=== PATIENT | female | born 1995 | race Hispanic/Latino ===

== ENCOUNTER 2016-11-12 00:49 | Inpatient (IN) | payer OTHER ==
[~2016-11-12] VITALS: Ht 160 cm; Wt 69.9 kg
[2016-11-12] MEDS ORDERED: Oxytocin 30 Units/500 mL LR 30 UNITS in IV Premix 1 EACH IV PRN ×2 (07:25→07:30)
[2016-11-12] MEDS ORDERED: Lactated Ringer's 1,000 ML IV SCH (07:25)
[2016-11-12] MEDS ORDERED: Carboprost 250 mCg/mL Inj IM PRN (07:30)
[2016-11-12] MEDS ORDERED: fentaNYL-PF 50 mCg/mL 2 mL Inj IVPUSH PRN (07:30)
[2016-11-12] MEDS ORDERED: Methylergonovine 0.2 mg/mL Inj IM PRN (07:30)
[2016-11-12] MEDS ORDERED: Lactated Ringer's 1,000 ML IV PRN (07:30)
[2016-11-12] MEDS ORDERED: Hemorrhage Kit, Post Partum XX ONE (07:30)
[2016-11-12 08:00] LABS: Mean Corpuscular Hemoglobin 25.8 pg (27.0-35.0); Mean Corpuscular Volume 79.9 fL (81-100)
[2016-11-12] MEDS ORDERED: Lidocaine 1%-Epi 1:100,000 20 mL Inj ONE (14:39)
[2016-11-12] MEDS ORDERED: Lactated Ringer's 1,000 ML IV ONE (21:55)
--- NOTE | 2016-11-12 22:26 | PCM.PNOBIP ---
Subjective Date of Service November 12, 2016 Gastrointestinal: No N/V Activity: Ambulating Independently Group B Strep Results: Negative Labs Laboratory Tests 11/12/16 07:50: White Blood Count 7.5, Red Blood Count 4.18, Hemoglobin 10.8, Hematocrit 33.4, Mean Corpuscular Volume 79.9, Mean Corpuscular Hemoglobin 25.8, Mean Corpuscular Hemoglobin Concent 32.3, Red Cell Distribution Width 14.9, Platelet Count 232 Exam Vital Signs Vital Signs Contraction frequency in minutes: MVUs: Heart Tracings Heart Tones Baseline 130 bpm Heart Rate Variability: Moderate Heart Rate Accelleration: Present Heart Rate Deceleration: Absent Heart Rate Category: I Tocometry/IUPC Contraction frequency in minutes: MVUs: Sterile Vaginal Exam Cervical Dilation: 3 cms Cervical Effacement: 70 % Station: -3 Exam Abdomen: Abdomen non-tender Lungs: Clear to Auscultation General: Alert, Oriented X3 OB Intrapartum Assessment/Plan Assessment 20 Y/O at 41 weeks 0 days IOL for late term Pitocin at 12 miliunits SROM 1700 , confirmed by ROM plus, still palpable membranes, discuss to continue Pitocin vs rupturing the remaining bag and placing internals to facilitate labor, patient declined rupturing membranes at this time and desires to continue with Pitocin. Will continue Pitocin as pt still in latent phase of labor If no cervical change overnight will consider rupturing remaining membranes in the AM, patient agreed to the plan. continue close monitoring for signs of infection and FHT. contractions getting stronger , OK for morphine. Rocky GALAVIZ. Sae Montero MD November 12, 2016 22:26
[2016-11-13] MEDS ORDERED: Lactated Ringer's 500 ML IV ONE (02:25)
[2016-11-13] MEDS ORDERED: Atropine 1 mg/10 mL (Code) Syringe IVPUSH PRN (02:25)
[2016-11-13] MEDS ORDERED: Ondansetron 2 mg/mL 2 mL Inj IVPUSH PRN (02:25)
[2016-11-13] MEDS ORDERED: Phenylephrine/NS-PF 100 mCg/mL 5 mL Syringe IVPUSH PRN (02:25)
[2016-11-13] MEDS ORDERED: Lactated Ringer's 1,000 ML IV SCH ×2 (02:25→13:10)
[2016-11-13] MEDS ORDERED: fentaNYL 2 mCg/mL-Bupiv 0.125% 100 ML EPIDURAL SCH (02:25)
--- NOTE | 2016-11-13 02:29 | PCM.HPANE ---
Patient Data Date of Service: November 13, 2016 Surgeon Admitting Provider:Carine Cunha MD Attending Provider:Carine Cunha MD Primary Care Physician:Ynes Hernandez MD Other Provider:Sp Alex Anesthesia Reason for Visit Induction INDUCTION Ht/WT & BMI Height (Centimeters): 160 Weight (Kilograms): 69.85 Body Mass Index 27.3 Allergies Coded Allergies: No Known Allergies (Unverified Allergy, Unknown, 11/12/16) Past Anesthesia History Anesthesia History: Denies:: Anesthesia Reactions, Malignant Hyperthermia Diabetes History Hx Diabetes?: No MRSA MRSA: No Medications Hypertension Medication: No Home Meds Incl Beta Atif: No History History of ENT Problems?: No HEENT History: Denies:: Abnormal Airway Denture Type: None Teeth Condition: Within Normal Limits Hx of Heart Problems?: No Cardiovascular History: Denies:: Chest Pain Heart Murmur Hx of Respiratory Problem?: No Respiratory History: Denies:: Asthma Hx Neurologic Problems?: No Neurological History: Denies:: Multiple Sclerosis Peripheral Neuropathy Seizures Hx of GI Problems?: No Hx of Problems?: No HX of Peritoneal Dialysis: No Female Hx: Positive for:: Currently Hx Musculoskeletal Problems?: No Musculoskeletal History: Denies:: Back Injury Musculoskeletal Trauma Rheumatoid Arthritis Hx of Psycho/Social Problems?: No Hx Surgeries?: No Smoking Status: Never Smoker Stop/Bang Risk Assessment Category Category 1A: Patient has history of documented sleep apnea, and HAS NOT received any narcotic, sedative or anesthesia administration during this stay. Category 1B: Patient has history of documented sleep apnea, and HAS received any narcotic , sedative or anesthesia administration during this stay Category 2: Patient has SUSPECTED Obstructive Sleep Apnea, and HAS received any narcotic , sedative or anesthesia administration during this stay. Category 3: Patient has SUSPECTED Obstructive Sleep Apnea and HAS NOT received narcotic, sedative or anesthesia administration during this stay. Category 4: Outpatient in Procedural Areas with known sleep apnea or who screen positive for High Risk via the STOP/BANG questionnaire. Exam Exam General Appearance: Alert, Oriented X3, Mild Distress (labor pain with contractions) HEENT/AIRWAY: MP 2 Lungs: Clear to Auscultation, Normal Air Movement Heart: Exam Unremarkable Meds/Labs/Diagnostics Admission Meds Current Medications Lactated Ringer's (Lr) 1,000 ml @ 0 mls/hr Q0M ONCE IV Last administered on 5/ 1/17at 22:41; Start 11/12/16 at 21:55; Stop 11/12/16 at 22:42; Status DC Labs Test 11/12/16 07:50 White Blood Count 7.5th/mm3 (3.8-10.1) Red Blood Count 4.18mil/mm3 (3.90-5.20) Hemoglobin 10.8g/dL (12.0-15.6) Hematocrit 33.4% (35.0-46.0) Mean Corpuscular Volume 79.9fL (81-100) Mean Corpuscular Hemoglobin 25.8pg (27.0-35.0) Mean Corpuscular Hemoglobin Concent 32.3% (32.0-37.0) Red Cell Distribution Width 14.9% (12.3-15.4) Platelet Count 232bil/L (150-400) Plan Impression Patient chart reviewed, patient interviewed and anesthestic plan with risks, benefits, and alternatives discussed, and informed consent obtained. ASA Physical Status: ASA2 Mod Systemic Disease Anesthetic Plan: Epidural (labor) Bene/Risks/Altern/Consents: Yes HP Complete Prior to Induction: Yes Soren Baird MD November 13, 2016 02:29
--- NOTE | 2016-11-13 02:43 | PCM.PNOBIP ---
Subjective Date of Service November 13, 2016 Subjective Second gush of fluid with copious amount of clear fluid at ~2:00 am 11/13/16. Pt requesting epidural. Gastrointestinal: No N/V Activity: Ambulating Independently Group B Strep Results: Negative Labs Laboratory Tests 11/12/16 07:50: White Blood Count 7.5, Red Blood Count 4.18, Hemoglobin 10.8, Hematocrit 33.4, Mean Corpuscular Volume 79.9, Mean Corpuscular Hemoglobin 25.8, Mean Corpuscular Hemoglobin Concent 32.3, Red Cell Distribution Width 14.9, Platelet Count 232 Exam Vital Signs Vital Signs Contraction frequency in minutes: MVUs: Heart Tracings Heart Tones Baseline 125 bpm Heart Rate Variability: Moderate Heart Rate Accelleration: Present Heart Rate Deceleration: Absent Heart Rate Category: I Tocometry/IUPC Contraction frequency in minutes: MVUs: Sterile Vaginal Exam IUPC was placed. Cervical Dilation: 4 cms Cervical Effacement: 90 % Station: -2 Exam Abdomen: Abdomen non-tender General: Alert, Oriented X3 OB Intrapartum Assessment/Plan Assessment 20 at 41w1d IOL on Pitocin SROM at 1700 (11/12/16) , clear fluid. GBS negative cephalic by bedside US. Intrapartum Pain Management: Epidural (requested , OK for epidural. ) Sae Montero MD November 13, 2016 02:43
[2016-11-13] MEDS: EPHEDrine Sulfate 50 mg/mL Inj IVPUSH PRN ×2 (03:18→03:23)
[2016-11-13 07:14] LABS: Mean Corpuscular Hemoglobin 25.4 pg (27.0-35.0); Mean Corpuscular Volume 79.9 fL (81-100)
--- NOTE | 2016-11-13 07:44 | HP ---
[address] [address] HISTORY AND PHYSICAL PATIENT: MIREYA GALLEGOS : 1995 MR#: [id number] ADMIT: 11/12/2016 JOB ID: [id number] CHIEF COMPLAINT: Induction of labor. HISTORY OF PRESENT ILLNESS: This is a 20-year-old, G1, P0 female at 41 weeks gestational age with an EDC of November 05, 2016 who presents for a scheduled induction of labor for post dates. Her was otherwise uncomplicated. laboratory data showed blood type A positive, antibody screen negative, rubella immune, varicella immune, hep B surface antigen negative, RPR nonreactive, HIV negative, and GBS negative. She was checked in clinic last week and noted to be 1-2 cm dilated, 60% effaced, and -3 station. Risks, benefits and alternatives to induction of labor for post dates were discussed, and she was scheduled to come in today. PAST MEDICAL HISTORY: Anxiety. PAST SURGICAL HISTORY: None. OBSTETRICAL HISTORY: She is a G1, P0. HISTORY: As noted above. SOCIAL HISTORY: Patient denies any tobacco, alcohol or drug use. FAMILY HISTORY: Noncontributory. MEDICATIONS: Include vitamins. ALLERGIES: She has no known drug allergies. OBJECTIVE: Blood pressure is 101/67, her heart rate is 64, respiratory rate 20, and her temperature is 36.8. In general, she is awake, alert, oriented. She is in no acute distress, lying comfortable in the exam room. Her abdomen is soft, nontender, nondistended. Her estimated weight is approximately 7 pounds. heart tones show 130s baseline, moderate variability, with accelerations present. Tocometry at the time of admission shows rare uterine contractions. Sterile vaginal exam by the nurse shows that her cervix is 2 cm dilated, 70% effaced, and -3 station. The head is very high in the pelvis. ASSESSMENT: This is a 20-year-old, G1, P0 female at 41 weeks gestational age presenting for an induction of labor for post dates. PLAN: Pitocin is being started per protocol at this point in time after her cervix is soft and stretchy and her martinez score is 6-7. If she does not respond well to this we will consider switching back to the cervical ripening protocol. Her laboratory data shows blood type A positive, rubella immune, varicella immune. No vaccination are needed. She is GBS negative. She is otherwise doing well. She is requesting an epidural and I will contact Anesthesia regarding this. At this point in time, we will continue her induction with Pitocin. RUSTY
[2016-11-13] MEDS ORDERED: Carboprost 250 mCg/mL Inj IM PRN (13:10)
[2016-11-13] MEDS ORDERED: Oxytocin 30 Units/500 mL LR 30 UNITS in IV Premix 1 EACH IV PRN (13:10)
[2016-11-13] MEDS ORDERED: Hemorrhage Kit, Post Partum XX ONE (13:10)
[2016-11-13] MEDS ORDERED: LANOlin HPA 7 Gm Ointment TOPICAL PRN (13:10)
[2016-11-13] MEDS ORDERED: Oxytocin 10 Unit/mL Inj IM PRN (13:10)
[2016-11-13] MEDS ORDERED: Methylergonovine 0.2 mg/mL Inj IM PRN (13:10)
--- NOTE | 2016-11-13 13:36 | OP ---
[address] [address] OPERATIVE REPORT PATIENT: MIREYA GALLEGOS : 1995 MR#: [id number] ADMIT: 11/12/2016 JOB ID: [id number] DELIVERY NOTE: DATE OF SURGERY: Date of delivery: 11/13/2016 PREOPERATIVE DIAGNOSIS(ES): A 41-week gestation. POSTOPERATIVE DIAGNOSIS(ES): A 41-week gestation, delivered. PROCEDURE PERFORMED: Spontaneous vaginal delivery with repair of a second-degree perineal laceration. SURGEON: Tasha Faria MD ANESTHESIA: Epidural. ESTIMATED BLOOD LOSS: 250 mL. COMPLICATIONS: None. PATHOLOGY SENT: None. FINDINGS: At the time of my delivery, male in a cephalic presentation in occiput anterior position. Apgars of 8 and 9. No weight was available at time of delivery due to maternal infant skin-skin bonding. There was a small second-degree perineal laceration. INDICATION FOR PROCEDURE: Patient is a 20-year-old, 1, now para 1, at 41 weeks gestation with an estimated due date of November 05, 2016, who was brought in for a scheduled induction on November 12, 2016. She is A-positive. GBS was negative. PROCEDURE IN DETAIL: The patient is a 20-year-old, 1, para 0, at 41 weeks gestation. She was brought in on November 12, 2016 for an induction of labor. She was started on Pitocin. She was completely dilated at 0726 hours on November 13, 2016. She began pushing at 0859 hours. She had delivery of infant at 1243 hours in a cephalic presentation. There was a single nuchal cord that was easily reduced at the time of delivery. The placenta was delivered intact with three-vessel cord at 1247 hours. On inspection of vagina, cervix and perineum, there was a small second-degree perineal laceration that was repaired in a standard fashion with 0-Vicryl suture. The subcutaneous layer was closed with 0 chromic, two sutures interrupted. All sponge counts were correct x2 at the end of the procedure. PLAN: Routine care.
[2016-11-13] MEDS: Benzocaine (Dermoplast) 20% 60 Gm Spray TOPICAL PRN (15:40)
[2016-11-13] MEDS: Witch Hazel-Glycerin Pads TOPICAL PRN (15:40)
[2016-11-13] MEDS: Ascorbic Acid 500 mg Tablet PO SCH (20:17)
[2016-11-14 07:30] LABS: Mean Corpuscular Hemoglobin 25.8 pg (27.0-35.0); Mean Corpuscular Volume 80.1 fL (81-100)
--- NOTE | 2016-11-14 07:52 | PCM.PNOBPP ---
Subjective Date of Service November 14, 2016 Visit History This is a 20-year-old, G1, P0 female at 41 weeks gestational age with an EDC of November 05, 2016. She was brought in for induction of labor at 41 weeks gestation. laboratory data showed blood type A positive, antibody screen negative, rubella immune, varicella immune, hep B surface antigen negative, RPR nonreactive, HIV negative, and GBS negative. Subjective Patient has no complaints today. Lochia: Normal Pain Management: PO pain meds Gastrointestinal: No N/V Postop Activity: Ambulating Independently Group B Strep Results: Negative Blood Type: A RH Type: Positive Labs Laboratory Tests 11/14/16 06:47: White Blood Count 10.9, Red Blood Count 3.92, Hemoglobin 10.1, Hematocrit 31.4, Mean Corpuscular Volume 80.1, Mean Corpuscular Hemoglobin 25.8, Mean Corpuscular Hemoglobin Concent 32.2, Red Cell Distribution Width 15.1, Platelet Count 219 Exam Vital Signs Vital Signs: VS reviewed, stable Exam Abdomen: Fundus firm Extremities: No cords Heart: Exam Unremarkable General: Alert, Oriented X3 OB Post Assessment/Plan Problems: (1) care and examination immediately after delivery Plan: Patient is doing well. She states she is not ready to go home yet at this time and would like more time with nurses and sales representative consultant to help with breast-feeding. Otherwise she is doing well and we will continue routine care. Status: Acute ICD Code: Z39.0 Tasha Faria MD November 14, 2016 07:52
[2016-11-14] MEDS: Ascorbic Acid 500 mg Tablet PO SCH ×2 (10:01→18:33)
--- NOTE | 2016-11-15 07:53 | PCM.DIOB ---
Obstetrical Disch Instruction Dates of Hospitalization Date of Hospital Admission November 12, 2016 at 06:43 Providers Admitting Physician: Carine Cunha MD Primary Care Physician: Ynes Hernandez MD Attending Physician: Carine Cunha MD Discharge Diagnosis Problems: (1) care and examination immediately after delivery Status: Acute ICD Code: Z39.0 Diet Discharge Diet: No restrictions Activity Discharge Activity-General: Pelvic Rest for 6 weeks, Balance rest and activity , No lifting >15 pounds for 2 weeks Dressing and Incisional Care Hygiene: May shower, NO bathtub, hot tub or whirlpool, Perineal care, Sitz bath , Dermoplast spray, Witch Karma pads Additional Instructions Discharge Instructions Call your provider for any questions or concerns. Including any of the following : * A change in odor from your episiotomy/stitches area or vaginal flow. (pg 52) * Temperature higher than 100.4 degrees (pg 54) * Heavy bright red bleeding (pg 51) * Your breast develops red painful areas or red streaks (pg 37) * Baby Blues (pg 58) and Depression (pg 59) For more detailed information refer to pages in Baby New Follow Up Plan Follow-up Provider (F9): Tasha Faria MD Follow-up appointment: Weeks (6) Call your provider for: Fever or Chills, Shortness of breath, Heavy vaginal bleeding, Red painful breasts Marilyn Castanon MD November 15, 2016 07:53
[2016-11-15] MEDS ORDERED: DOCU-41 PO (07:54)
[2016-11-15] MEDS ORDERED: IBUP800T28 PO (07:54)
--- NOTE | 2016-11-15 09:06 | DIS ---
[address] [address] DISCHARGE SUMMARY PATIENT: MIREYA GALLEGOS : 1995 MR#: [id number] ADMIT: 11/12/2016 JOB ID: [id number] DIS: 11/15/2016 ADMISSION DIAGNOSIS: Forty-one week intrauterine admitted for an induction of labor for post dates. DISCHARGE DIAGNOSIS: Forty-one week intrauterine admitted for an induction of labor for post dates. PROCEDURE PERFORMED: Spontaneous vaginal delivery of a liveborn male infant, born on November 13, 2016 with Apgars of 8 at one minute, nine at five minutes. REASON FOR ADMISSION: This is a 20-year-old, G1, P0 female who presented at 41 weeks gestational age with EDC of November 05, 2016 who was admitted for induction of labor due to post dates. Her was otherwise uncomplicated. LABORATORY DATA: Showed blood type of A positive, antibody screen negative, rubella immune, varicella immune, hep B surface antigen negative, RPR nonreactive, HIV negative, GBS negative. REASON FOR ADMISSION AND HOSPITAL COURSE: She is admitted for induction of labor on November 12, 2016. Her Jones score at the time of admission was 6-7 and because of this Pitocin was started per protocol. She spontaneously ruptured on the afternoon of November 12 at around 5 p.m. and later that evening, an epidural was placed around two in the morning on November 13. An intrauterine pressure catheter was placed when her cervix was noted to have made minimal policy change clerk 16 hours and over approximately 12 hours following rupture. But then following this, she quickly progressed to complete around 7 a.m. on the morning of November 13, 24 hours after admission. Her heart tones reactive and reassuring throughout her time on labor and delivery. The patient labored down for approximately an hour and then after this was done, she began pushing and pushed for 3 1/2 hours, at which point she then had a spontaneous vaginal delivery. Please see the operative note by Dr. Faria on November 13 for details regarding this. By day one, she was doing very well, but she did not feel ready to go home as she felt she needed more help. At that point in time, she was ambulating and voiding on her own. Her pain was well controlled, but she did need some support. On the morning of November 14, her labs returned and her white count was 10.9, her hemoglobin was 10.1 and her platelets were 219. By day number two, she was voiding and ambulating without difficulty. Pain was well controlled. Her bleeding was noted to be minimal and she was doing better with breast-feeding and the infant did have his frenulum clipped to the aid in this process. It was by day number two that she was deemed stable for discharge. INSTRUCTIONS AT DISCHARGE: The patient was advised to remain on pelvic rest for six weeks including no tampons, douching or intercourse. She was asked to call with any signs or symptoms of infection including fever greater than 100.5 degrees, severe pain, malodorous vaginal discharge or bleeding greater than one pad per hour. MEDICATIONS AT DISCHARGE: Included: 1. Ibuprofen 800 mg p.o. q.8 h. p.r.n. pain as well as Colace 100 mg p.o. b.i.d. p.r.n. constipation. 2. She was asked to continue her vitamins as prescribed. Her blood type was A positive. She was rubella immune, varicella immune and did not require any vaccinations. She was planning on using Nexplanon for contraception and this will be discussed further at her six week visit. All questions and concerns of the patient were answered. She was deemed stable for discharge on day number two.
[2016-11-15 11:51] VITALS: BP 103/59; PULSE 77; RESP 17
[2016-11-15] MEDS: Benzocaine (Dermoplast) 20% 60 Gm Spray TOPICAL PRN (13:11)
[2016-11-15] MEDS: Ascorbic Acid 500 mg Tablet PO SCH (13:11)
[2016-11-15] MEDS: Witch Hazel-Glycerin Pads TOPICAL PRN (13:11)
== END 2016-11-15 14:40 | disposition home or self-care (01) | DRG 775 ==
LOC: FBC 06:43
PROVIDERS: ADMIT Obstetrics & Gynecology; ATTEND Obstetrics & Gynecology
PROC: 3E0P7GC Introduction of Other Therapeutic Substance into Female Reproductive, Via Natural or Artificial Opening (ICD-10-PCS; 2016-11-12)
PROC: 10E0XZZ Delivery of Products of Conception, External Approach (ICD-10-PCS; principal; 2016-11-13)
PROC: 0KQM0ZZ Repair Perineum Muscle, Open Approach (ICD-10-PCS; 2016-11-13)
PROC: 10H07YZ Insertion of Other Device into Products of Conception, Via Natural or Artificial Opening (ICD-10-PCS; 2016-11-13)
DX: O48.0 Post-term pregnancy (principal); O69.81X0 Labor and delivery complicated by cord around neck, without compression, not applicable or unspecified; O70.1 Second degree perineal laceration during delivery; Z3A.41 41 weeks gestation of pregnancy; Z37.0 Single live birth